=== PATIENT | female | born 1990 | race Two or more races ===

== ENCOUNTER 2022-03-28 07:48 | Outpatient (CLI) | payer OTHER | END 2022-03-28 07:50 | disposition home or self-care (01) | LOC: LAB 07:48 | PROVIDERS: ATTEND Physical Medicine & Rehabilitation | DX: M06.9 Rheumatoid arthritis, unspecified (principal); M54.2 Cervicalgia ==

== ENCOUNTER 2022-04-11 10:58 | Emergency (ER) | payer OTHER ==
[~2022-04-11] VITALS: Ht 152.4 cm; Wt 63.5 kg
[2022-04-11] MEDS ORDERED: TOPROL XL25 M1 PO (11:25)
[2022-04-11] MEDS ORDERED: ADULT LOW DOSE81 M1 PO (11:25)
== END 2022-04-11 16:06 | disposition home or self-care (01) ==
LOC: ER 10:58
DX: A49.3 Mycoplasma infection, unspecified site (principal); Z20.822 Contact with and (suspected) exposure to COVID-19; I49.9 Cardiac arrhythmia, unspecified

== ENCOUNTER 2022-08-07 11:56 | Outpatient (CLI) | payer OTHER ==
[~2022-08-07 11:56] MED LIST: ADULT LOW DOSE81 M1 PO; TOPROL XL25 M1 PO
== END 2022-08-07 12:44 | disposition home or self-care (01) ==
LOC: RAD 11:56
DX: J06.9 Acute upper respiratory infection, unspecified (principal)